=== PATIENT | male | born 1995 | race Caucasian/White ===

== ENCOUNTER → 2020-01-12 13:34 | Outpatient (BNVA) | payer BC, SELFPAY | PROVIDERS: Visit Provider Nurse Practitioner Family | DX: R30.0 Dysuria (principal); Z11.3 Encounter for screening for infections with a predominantly sexual mode of transmission | CPT/HCPCS: 81000; 86592; 87491; 87591; 87806 ==

== ENCOUNTER → 2020-01-23 17:20 | Outpatient (BNVA) | payer BC, SELFPAY | PROVIDERS: Visit Provider Family Medicine | DX: J02.0 Streptococcal pharyngitis (principal) | CPT/HCPCS: 87880 ==

== ENCOUNTER → 2020-06-26 11:00 | Outpatient (BNVA) | payer OTHER, SELFPAY | PROVIDERS: Visit Provider Nurse Practitioner Family | DX: J06.9 Acute upper respiratory infection, unspecified (principal); Z20.828 Contact with and (suspected) exposure to other viral communicable diseases | CPT/HCPCS: 87635 ==

== ENCOUNTER → 2020-12-28 13:27 | Outpatient (BNVA) | payer BC, SELFPAY | PROVIDERS: Visit Provider Psychiatry & Neurology Psychiatry | DX: F41.1 Generalized anxiety disorder (principal); F33.1 Major depressive disorder, recurrent, moderate; F10.21 Alcohol dependence, in remission; F43.12 Post-traumatic stress disorder, chronic | CPT/HCPCS: 99204 ==

== ENCOUNTER → 2021-02-11 09:04 | Outpatient (BNVA) | payer BC, SELFPAY | PROVIDERS: Visit Provider Psychiatry & Neurology Psychiatry | DX: F33.1 Major depressive disorder, recurrent, moderate (principal); F43.12 Post-traumatic stress disorder, chronic; F41.1 Generalized anxiety disorder; F10.21 Alcohol dependence, in remission | CPT/HCPCS: 99213 ==

== ENCOUNTER 2021-07-04 13:42 | Outpatient (CLI) | payer BC, SELFPAY ==
--- NOTE | 2021-07-04 13:46 | XR_ITS ---
WS: [id number] LUMBAR SPINE TECHNIQUE: 3 views of the lumbar spine CLINICAL INFORMATION: M54.5 - Low back pain COMPARISON: None. FINDINGS: Five [id number]-ikjxmbu lumbar vertebral bodies. Grade 1 anterolisthesis L5 on S1 measuring 6 mm. Bilate ral pars defects L5-S1. Mild disc space narrowing L4-L5 and L5-S1. Schmorl's nodes in the lower thora cic and upper lumbar spine. Visualized sacroiliac joints are normal. Normal visualized soft tissues. Partially visualized bowel g as pattern is normal. XR/XR lumbar spine 2-3V* [id number] IMPRESSION: 1. Grade 1 anterolisthesis L5 on S1 measuring 6 mm. Chronic bilateral pars def ects L5-S1. 2. Mild disc space narrowing L4-L5 and L5-S1.
== END 2021-07-04 13:43 | disposition home or self-care (01) ==
PROVIDERS: Visit Provider Nurse Practitioner Family
DX: M54.5 Low back pain (principal)
CPT/HCPCS: 72100

== ENCOUNTER → 2021-07-25 10:56 | Outpatient (BNVA) | payer OTHER, SELFPAY | PROVIDERS: PCP Nurse Practitioner Family; Referring Provider Nurse Practitioner Family; Visit Provider Orthopaedic Surgery | DX: M54.5 Low back pain (principal); M43.17 Spondylolisthesis, lumbosacral region | CPT/HCPCS: 72110 ==

== ENCOUNTER 2021-07-26 09:20 | Outpatient (CLI) | payer OTHER, SELFPAY ==
--- NOTE | 2021-07-26 09:39 | MR_ITS ---
WS: [id number] MRI LUMBAR SPINE NONCONTRAST TECHNIQUE: Sagittal T1, T2 and STIR imaging. Axial T1 and T2 imaging. CLINICAL INFORMATION: M54.5 - Low back pain COMPARISON: None. FINDINGS: Mild lumbar curve. No acute compression. No high-grade central canal stenosis. Disc bulging worse at left L5-S1. Chronic bilateral pars defects L5-S1 with sclerosis. Anterolisthesis L5 on S1 measuring 3 mm L1-L2: Normal. L2-L3: Normal. L3-L4: No significant disc bulging. Mild facet arthropathy. Spinal canal and foramen are patent. L4-L5: Mild annular bulging. Mild to moderate facet arthropathy. Spinal canal and foramen are patent. L5-S1: Left subarticular and foraminal disc protrusion with an annular tear. This impinges the exitin g left L5 nerve root with moderate left foraminal narrowing. Correlation with L5 nerve root symptoms. Right foramen is patent. Moderate facet arthropathy. Slight impingement traversing left S1 nerve ambreen t. Visualized pelvic bony structures: Normal. Paravertebral soft tissues: Normal. MR/MR lumbar spine wo con* [id number] IMPRESSION: 1. Mild lumbar curve. No acute compression. No high-grade central canal stenos is. 2. Left subarticular and proximal foraminal disc protrusion L5-S1 impinges the exiting left L5 nerve root with moderate left foraminal narrowing and small an nular tear. 3. In addition, slight contact traversing left S1 nerve root in the subarticul ar recess L5-S1. 4. Chronic bilateral pars defects L5-S1 with sclerosis. Anterolisthesis L5 on S1 measuring 3 mm. 5. Mild to moderate facet arthropathy L3-L5.
== END 2021-07-26 09:21 | disposition home or self-care (01) ==
LOC: RADSHAW 09:24
PROVIDERS: PCP Nurse Practitioner Family; Visit Provider Nurse Practitioner Family
DX: M47.816 Spondylosis without myelopathy or radiculopathy, lumbar region (principal); M51.27 Other intervertebral disc displacement, lumbosacral region
CPT/HCPCS: 72148

== ENCOUNTER 2022-01-31 22:31 | Emergency (ER) | payer BC, SELFPAY ==
[2022-01-31 22:37] VITALS: BP 164/95; PULSE 87; RESP 18; TEMP 36.8; O2SAT 97; BMI 45.9
--- NOTE | 2022-01-31 22:41 | ED_ITS ---
HPI - Wound/Laceration General: Chief Complaint: Wound/Laceration Stated Complaint: cut finger on left hand Time Seen by Provider: 01/31/22 22:41 History of Present Illness: 26-year-old male patient comes in with injury to the left ring finger. On exam patient has a 2 cm laceration to the palmar aspect of the DIP of the fourth finger on the left hand. Patient has normal tendon function. Patient's tetanus shot is up-to-date. Patient reports injury occurred accidentally when he was cooking tonight. Onset (ago): hour(s) Location: other (Left hand) Extremity Location: Left: hand Place: home Patient tetanus UTD: Yes Context: accidental Associated symptoms: Reports no associated symptoms; Denies fever(s) Review of Systems General: Reports: 10 or more systems reviewed and unremarkable except in HPI and below Const: Denies: fever(s) Card: Denies: chest pain Resp: Denies: dyspnea Musc: Reports: extremity pain Skin/Breast: Reports: new lesions Psych: Denies: depression Vijay/Lymph: Denies: easy bruising or easy bleeding PFS ED PFSH: Medical History (Updated 01/31/22 @ 23:07 by SHOSHANA Frances) ADHD Attention and concentration deficit No pertinent past medical history Psychiatric care Surgical History No pertinent past surgical history Social History Smoking and tobacco status: never smoked Second hand smoke exposure: Yes Alcohol intake: current Alcohol intake frequency: few times a month Lives independently: Yes Marital status: service: No Current occupational status: employed Current occupation: [employer] History of recent travel: No Current gender identity: Male Physical Exam Const: COMMON NORMALS: alert HENMT: COMMON NORMALS: atraumatic HEAD & SCALP: atraumatic Neck/C-Spine: COMMON NORMALS: full ROM Resp: COMMON NORMALS: normal respiratory effort Cardio: COMMON NORMALS: regular rate RATE: regular rate Extremity: LEFT UPPER EXTREMITY: Yes hand & digits (2 cm laceration to the fourth digit, normal tendon function) Left hand and digits: Yes inspection, Yes palpation, Yes ROM, Yes neurovascular exam and Yes tendon exam Neuro: SENSORIUM/ORIENTATION: Yes alert Psych: COMMON NORMALS: cooperative Procedures Laceration Laceration 1: Site: hand Side (If applicable): left Size (cm): 2 Description: linear Depth: simple, single layer Local Anesthetic: lidocaine 1% and with epi Amount of anesthesia used (mL): 2 Pre-repair: wound explored and irrigated extensively Skin layer closed with: nylon Size (cm): 4-0 Number of sutures: 4 Technique: horizontal mattress Course Vital Signs: Vital signs: Vital Signs Temperature 98.3 F 01/31/22 22:37 Pulse Rate 87 01/31/22 22:37 Respiratory Rate 18 01/31/22 22:37 Blood Pressure 164/95 01/31/22 22:37 Pulse Oximetry 97 01/31/22 22:37 MDM - Wound/Laceration Medical Decision Making Patient comes in for injury to the left ring finger. On exam there is a 2 cm laceration at the palmar side of the DIP joint. Patient has good tendon function. Patient does report some numbness distal week. Prompt capillary refill. Differential diagnosis includes but not limited to foreign body, laceration, neurovascular injury. Patient possibly might have some neurovascular injury reviewed this with patient recommended follow-up as needed. Wound was closed with sutures. Patient tolerated well. Discharge Plan Discharge Patient Disposition: Home Clinical Impression: Finger laceration Condition: Stable Prescriptions: No Action diclofenac potassium [Cataflam] 50 mg tablet 50 mg PO DAILY 0RF Label Comments: pt states not taking this med cyclobenzaprine 10 mg tablet 10 mg PO TID 0RF Label Comments: Pt states not taking this medication atomoxetine 40 mg capsule 40 mg PO QAM 30 Days Qty: 30 3RF dextroamphetamine-amphetamine 10 mg tablet 10 mg PO BID 30 Days Qty: 60 0RF celecoxib [Celebrex] 200 mg capsule 200 mg PO BID Qty: 60 1RF Discharge Orders: Discharge ED (Routine); Ordered 01/31/22 Ordered By: Preston Calhoun Referrals: Divine Solorzano FNP [Primary Care Provider] - Discharge Diet: Usual diet Discharge Activity: Limit activity as instructed Patient Instructions: Laceration (ED) Activity Restrictions/Additional Instructions: Keep wound clean and dry. You can leave the initial dressing on as long as it stays clean and dry. Change if it becomes soiled or wet. Sutures need to come out in 7 to 10 days. Monitor for fever, increasing redness or swelling, or signs of infection. Follow-up with primary care in 1 week. Return to ER as needed. Coding Level of Care Code ED User Experience Developer for Tito Bean
[2022-01-31 23:18] VITALS: RESP 16
== END 2022-01-31 23:20 | disposition home or self-care (01) ==
PROVIDERS: Emergency Provider Nurse Practitioner Family; PCP Nurse Practitioner Family
DX: S61.215A Laceration without foreign body of left ring finger without damage to nail, initial encounter (principal); W45.8XXA Other foreign body or object entering through skin, initial encounter; Y93.G3 Activity, cooking and baking; Y92.000 Kitchen of unspecified non-institutional (private) residence as the place of occurrence of the external cause
CPT/HCPCS: 12001; 99283

== ENCOUNTER → 2022-06-03 16:07 | Outpatient (BNVA) | payer BC, SELFPAY | PROVIDERS: PCP Nurse Practitioner Family; Visit Provider Nurse Practitioner Family | DX: J02.9 Acute pharyngitis, unspecified (principal) | CPT/HCPCS: 87071; 87880 ==

== ENCOUNTER → 2022-06-25 13:10 | Outpatient (BNVA) | payer BC, SELFPAY | PROVIDERS: PCP Nurse Practitioner Family; Visit Provider Nurse Practitioner Family | DX: F90.9 Attention-deficit hyperactivity disorder, unspecified type (principal); F41.1 Generalized anxiety disorder; E66.9 Obesity, unspecified; R51.9 Headache, unspecified; R00.2 Palpitations; R11.0 Nausea; K21.9 Gastro-esophageal reflux disease without esophagitis; R10.9 Unspecified abdominal pain | CPT/HCPCS: 80053; 80061; 84443 ==

== ENCOUNTER 2022-06-26 11:21 | Outpatient (CLI) | payer BC, SELFPAY ==
--- NOTE | 2022-06-26 11:29 | XR_ITS ---
WS: [id number] KUB, AP view, 06/26/2022 Clinical Data: epigastric abdominal pain Comparison: None. Findings: No abnormal intraabdominal masses or calcifications are seen. There is no dilatated small bowel or ev idence of obstruction. There is fecal material in the ascending colon. XR/XR KUB [id number] Impression: Negative KUB.
== END 2022-06-26 11:22 | disposition home or self-care (01) ==
PROVIDERS: PCP Nurse Practitioner Family; Visit Provider Nurse Practitioner Family
DX: R10.9 Unspecified abdominal pain (principal)
CPT/HCPCS: 74018

== ENCOUNTER → 2024-01-18 10:30 | Outpatient (BNVA) | payer BC, SELFPAY | PROVIDERS: PCP Nurse Practitioner Family; Visit Provider Nurse Practitioner Family | DX: R53.83 Other fatigue (principal) | CPT/HCPCS: 80053; 80061; 82306; 82607; 84403; 84443; 85025 ==

== ENCOUNTER → 2024-03-16 14:20 | Outpatient (BNVA) | payer BC, SELFPAY | PROVIDERS: PCP Nurse Practitioner Family; Visit Provider Nurse Practitioner Family | DX: R79.89 Other specified abnormal findings of blood chemistry (principal); R73.9 Hyperglycemia, unspecified; E55.9 Vitamin D deficiency, unspecified; Z71.3 Dietary counseling and surveillance; B35.3 Tinea pedis | CPT/HCPCS: 80053; 82306; 83036; 84403; 85025 ==

== ENCOUNTER 2024-03-24 13:10 | Outpatient (CLI) | payer BC, SELFPAY ==
[2024-03-24 13:14] LABS: Sperm Present Sperm Not Present
== END 2024-03-24 13:11 | disposition home or self-care (01) ==
LOC: LAB 13:11
PROVIDERS: PCP Nurse Practitioner Family; Visit Provider Urology
DX: Z30.8 Encounter for other contraceptive management (principal)
CPT/HCPCS: 80503

== ENCOUNTER 2024-04-01 09:36 | Outpatient (CLI) | payer BC, SELFPAY ==
[2024-04-01 10:22] LABS: Alanine Aminotransferase 23 U/L (0-41); Alkaline Phosphatase 84 U/L (40-130); Aspartate Amino Transferase 21 U/L (0-40); Estradiol 49.7 pg/mL (7.63-42.6); Globulin 3.1 g/dL (1.3-4.6); Prolactin 9.42 ng/mL (4.0-15.2); Total Bilirubin 0.4 mg/dL (0.15-1.2); Total Protein 7.1 g/dL (6.6-8.7)
[2024-04-04 12:30] LABS: Albumin 4.1 g/dL (3.6-5.1); Sex Hormone Binding Globulin 14.9 nmol/L (10-50); Testosterone, Bioavailable 96.9 ng/dL (110.0-575.0); Testosterone, Free 51.5 pg/mL (46.0-224.0); Testosterone, Total , MS 227 ng/dL (250-1100)
== END 2024-04-01 09:37 | disposition home or self-care (01) ==
LOC: LAB 09:40
PROVIDERS: PCP Nurse Practitioner Family; Visit Provider Nurse Practitioner Family
DX: E29.1 Testicular hypofunction (principal)
CPT/HCPCS: 36415; 80076; 82040; 82670; 83002; 84146; 84270; 84403

== ENCOUNTER 2024-06-06 12:18 | Outpatient (CLI) | payer BC, SELFPAY ==
[2024-06-06 13:34] LABS: Alanine Aminotransferase 25 U/L (0-41); Albumin Level 4.2 g/dL (3.5-5.2); Alkaline Phosphatase 87 U/L (40-130); Aspartate Amino Transferase 18 U/L (0-40); Estradiol 78.7 pg/mL (7.63-42.6); Globulin 3.2 g/dL (1.3-4.6); Luteinizing Hormone 0.1 mIU/mL (1.7-8.6); Prolactin 12.38 ng/mL (4.0-15.2); Total Bilirubin 0.4 mg/dL (0.15-1.2); Total Protein 7.4 g/dL (6.6-8.7)
[2024-06-09 11:09] LABS: Albumin 4.3 g/dL (3.6-5.1); Sex Hormone Binding Globulin 16.8 nmol/L (10-50); Testosterone, Bioavailable 229.3 ng/dL (110.0-575.0); Testosterone, Free 116.4 pg/mL (46.0-224.0); Testosterone, Total , MS 508 ng/dL (250-1100)
== END 2024-06-06 12:19 | disposition home or self-care (01) ==
LOC: LAB 12:21
PROVIDERS: PCP Nurse Practitioner Family; Visit Provider Nurse Practitioner Family
DX: E29.1 Testicular hypofunction (principal)
CPT/HCPCS: 36415; 80076; 82040; 82670; 83002; 84146; 84270; 84403

== ENCOUNTER 2024-06-13 12:21 | Outpatient (CLI) | payer BC, SELFPAY ==
[2024-06-13 12:58] LABS: Hematocrit 47.1 % (37-53)
== END 2024-06-13 12:22 | disposition home or self-care (01) ==
LOC: LAB 12:24
PROVIDERS: PCP Nurse Practitioner Family; Visit Provider Nurse Practitioner Family
DX: E29.1 Testicular hypofunction (principal)
CPT/HCPCS: 36415; 85014

== ENCOUNTER 2025-09-26 08:57 | Emergency (ER) | payer BC, SELFPAY ==
[2025-09-26 09:02] VITALS: BP 167/96; PULSE 88; RESP 16; TEMP 36.8; O2SAT 99
--- NOTE | 2025-09-26 09:13 | ED_ITS ---
HPI - General Adult General: Chief complaint: General Medical Stated complaint: ferris ekwok sent, stroke like symptoms Time Seen by Provider: 09/26/25 09:10 History of Present Illness: 29-year-old male with a history of ADHD and obesity who presents to the emergency room with left-sided facial weakness. That he had some pain in his neck and throat and lost taste in his left tongue. His entire left face including his eyebrow eyelid cheek are all week. No altered mental status. No other focal motor deficits. No slurred speech. Related Data Previous Rx's ?Medication ?Instructions ?Recorded phentermine 37.5 mg tablet 37.5 mg PO DAILY #30 tabs 0 03/16/24 terbinafine HCl 250 mg tablet 250 mg PO DAILY #30 tabs 03/16/24 ergocalciferol (vitamin D2) 1,250 1,250 mcg PO .weekly #12 caps 03/18/24 mcg (50,000 unit) capsule cephalexin 500 mg capsule 500 mg PO BID 10 days #20 ca ps 09/26/25 prednisone 20 mg tablet 60 mg (3 x 20 mg) PO DAILY # 20 tabs 09/26/25 valacyclovir 1 gram tablet 1,000 mg PO Q12H 10 days #2 0 tabs 09/26/25 Allergies Allergy/AdvReac Type Severity Reaction Status Date / Time gabapentin AdvReac Intermediate severe Verified 09/26/25 09:08 nightmares Review of Systems Narrative: Constitutional symptoms: Negative except as documented in HPI. Skin symptoms: Negative except as documented in HPI. Eye symptoms: Negative except as documented in HPI. ENMT symptoms: Negative except as documented in HPI. Respiratory symptoms: Negative except as documented in HPI. Cardiovascular symptoms: Negative except as documented in HPI. Gastrointestinal symptoms: Negative except as documented in HPI. Genitourinary symptoms: Negative except as documented in HPI. Musculoskeletal symptoms: Negative except as documented in HPI. Neurologic symptoms: Negative except as documented in HPI. Psychiatric symptoms: Negative except as documented in HPI. Endocrine symptoms: Negative except as documented in HPI. [facility] ED PFSH: Medical History (Updated 09/26/25 @ 09:14 by Karen Zaldivar MD) ADHD Attention and concentration deficit No pertinent past medical history Surgical History No pertinent past surgical history Social History Smoking and tobacco/nicotine status: never used tobacco/nicotine Second hand smoke exposure: Yes Alcohol intake: current Alcohol intake frequency: few times a month Lives independently: Yes Marital status: service: No Current occupational status: employed Current occupation: [employer] Current gender identity: Male Physical Exam Narrative: EXAM NARRATIVE: General: Alert, no acute distress. Skin: Warm, dry. Head: Normocephalic, atraumatic. Neck: Supple, trachea midline. Eye: Extraocular movements are intact. Ears, nose, mouth and throat: mucosa moist. Cardiovascular: Regular, Normal peripheral perfusion. Respiratory: Lungs are clear to auscultation, respirations are non-labored, breath sounds are equal, Symmetrical chest wall expansion. Gastrointestinal: Soft, Nontender, Non distended Musculoskeletal: Normal ROM, no deformity. Neurological: Alert and oriented, left-sided facial weakness including smile, eyelid, eyebrow and forehead. No other focal motor deficits. No slurred speech. Psychiatric: Cooperative, appropriate mood & affect. Course Vital Signs: Vital signs: Vital Signs Temperature 98.3 F 09/26/25 09:02 Pulse Rate 88 09/26/25 09:02 Respiratory Rate 16 09/26/25 09:02 Blood Pressure 167/96 09/26/25 09:02 Pulse Oximetry 99 09/26/25 09:02 Oxygen Delivery Me thod Room Air 09/26/25 09:02 MDM - General Adult Medical Decision Making Medical decision making Patient's reason for coming to the emergency room: Social determinants: I reviewed the patient's medical record. Patient has a history of ADHD. I reviewed the patient's current home meds Currently no chronic medication Alternate historians: None Differential diagnosis for patient with complaint of facial droop: bells palsy vs stroke. including but not limited to and based on the above HPI, review of systems and physical exam: involves forehead and eyelid, so almost certainly not a stroke. In this young person with definitive Wills's palsy some symptoms I considered a CT but this does not need to be done. Assessment and plan: Wills's palsy - Discharged home - Discussed plan with patient. Answered any questions. - Evaluation and treatment of this problem were appropriate in the emergency setting. No radiology studies performed this visit Discharge Plan Discharge Patient Disposition: Home Clinical Impression: Wills's palsy Condition: Stable Prescriptions: New valacyclovir 1 gram tablet 1,000 mg PO Q12H 10 Days Qty: 20 0RF prednisone 20 mg tablet 60 mg PO DAILY Qty: 20 0RF Rx Instructions: 3 tabs (60 mg) x 3 days. 2 tabs (40 mg) x 3 days. 1 tab (20 mg) x 3 days. 1/2 tab (10 mg) x 4 days cephalexin 500 mg capsule 500 mg PO BID 10 Days Qty: 20 0RF No Action phentermine 37.5 mg tablet 37.5 mg PO DAILY Qty: 30 0RF Rx Instructions: must administer 30 minutes before or 1-2 hours after breakfast terbinafine HCl 250 mg tablet 250 mg PO DAILY Qty: 30 1RF ergocalciferol (vitamin D2) 1,250 mcg (50,000 unit) capsule 1,250 mcg PO .weekly Qty: 12 1RF Discharge Orders: Discharge ED (Routine); Ordered 09/26/25 Ordered By: Karen Zaldivar Referrals: Divine Solorzano FNP [Primary Care Provider, Family Practice] Discharge Diet: Usual diet Discharge Activity: Increase activity as tolerated Patient Instructions: Wills Palsy (ED), Opioid Safety, Pain Management, Patient Portal & Miugel Instructions Activity Restrictions/Additional Instructions: Thank you for choosing [facility] for your healthcare needs today. You have been screened and evaluated and felt safe for discharge. Health conditions do change or evolve sometimes and as such it is important that you follow up with your Primary Doctor to be re checked, 3-5 days is a general good time frame for follow up. You are always welcome to return to the ED for re assessment if your symptoms are worsening or you have new concerns Stand Alone Forms: Work/School Release Print Language: Barbadian Coding Level of Care Code ED Crusher Feeder for Tito Bean
--- OUTSIDE RECORDS SUMMARY | 2025-09-26 09:13 | XMS_ITS | Continuity of Care Document ---
Author Organization RENET[facility] - Catrachita Zuleta, [facility] ([facility]) Address [address] [place] [address] Assessment No assessment recorded. Plan of Treatment Reminders Order Date Submit Date Provider Last Modified By Organization Details Last Modified Time Details Appointments ACUTE VISIT 2024 08:00A M WALK-IN Not available Not available Not available Lab streptoco ccus group A Ag screen 2024 025 [email or web address] [facility] ([facility]), [address] [place], [address], 08/29/2025 12:54:52 Referral None recorded. Procedures None recorded. Surgeries None recorded. Imaging None recorded. Medication Orders amoxicill in 875 mg-potass ium clavulana te 125 mg tablet 2024 025 [facility] [place], [address] [place], [address], 09/15/2025 05:01:37 Patient TargetsNo targets recorded. Patient Instructions Encounter Date Encounter Id Patient Instructions Last Modified By Organization Details Last Modified Time 08/29/2025 [id number] - Take prescribe d amoxicillin as directed. - Monitor for any side effects or allergic reactions. - Rest and stay hydrated to aid recovery. - Follow up if symptoms persist or worsen after a few days. - Report any new symptoms such as fever or persistent ear pain. [email or web address] Not available 08/29/2025 12:01:11 [email or web address] Not available 2024 16:42:35 Reason for Referral None Reported. Results Created Date Observation Date Name Description Value Unit Range Abnormal Flag Note LastModifiedBy Organization Detail LastModifiedTime 08/29/20 25 08/29/2025 strep tococ cus group A Ag scree n Strep negati ve Not Available [facility] ([facility]) [address] [place], [address], 08/29/2025 11:03:05 Result Notes None recorded. Problems Name Problem SNOMED Code Status Onset Date Resolution Date Notes Provider Name and Address Organization Details Recorded Time Acute maxillary sinusitis [id number] Active Odalis Brumfield, [address] [place], [address] , [facility], [facility] 11:20:01 Problem Notes None recorded. Medical Equipment None Reported. Allergies No known drug allergies Medications Name Sig Start Date Stop Date Status Note LastModified by Organization Details LastModified Time hydrocodo ne 5 mg-acetam inophen 325 mg tablet TAKE 1 TABLET BY MOUTH EVERY 6 HOURS NEEDED FOR PAIN 09/12 completed Not Available Not Available Not Available prednison e 20 mg tablet TAKE 2 TABLETS BY MOUTH DAILY FOR 10 DAYS 05/30 completed Not Available Not Available Not Available phentermi ne 37.5 mg tablet TAKE 1 TABLET BY MOUTH EVERY DAY. MUST TAKE 30 MINUTES BEFORE OR 1-2 HOURS AFTER BREAKFAS T 09/12 completed Not Available Not Available Not Available terbinafi ne HCl 250 mg tablet TAKE 1 TABLET BY MOUTH EVERY DAY 09/12 completed Not Available Not Available Not Available amoxicill in 875 mg tablet two times daily 09/12 completed Recorded 01/06/20 23 7:51AM by SHOSHANA Castillo, Office Visit; Refill Quantity : 0; Not Available Not Available Not Available diazepam 10 mg tablet TAKE ONE TABLET NEEDED when arriving TO facility FOR procedur e 09/12 completed Not Available Not Available Not Available Vitamin D2 1,250 mcg (50,000 unit) capsule take 1 capsule BY MOUTH every week 09/12 completed Not Available Not Available Not Available ketoconaz ole 2 % topical cream apply topicall y TWICE DAILY FOR 14 DAYS 09/12 completed Not Available Not Available Not Available amoxicill in 875 mg-potass ium clavulana te 125 mg tablet Take 1 tablet twice a day by oral route for 10 days. 09/15 completed Not Available Not Available Not Available ciproflox acin 0.3 %-dexamet hasone 0.1 % ear drops,eder pension INSTILL FOUR DROPS into affected ear(S) TWICE DAILY for 7 days 08/29 completed Not Available Not Available Not Available Vitals Date Recorded Body height Body mass index (BMI) Body weight Body temperature Oxygen saturation Heart rate Systolic And Diastolic Provider Name and Address Organization Details Last Updated DateTime 177.8 cm 51.9 kg/m2 750617. 44 g 98.1 [degF] 96 % 71 /min 115/80 mm[Hg] ANNETTA STATON [facility] 11:29:40 Social History Question Answer Notes LastModified by Organizat ion Details LastModified Time Tobacco Smoking Status Never Smoker NASIR milton [facility] 05/30/2025 09:12:02 What Was The Date Of Your Most Recent Tobacco Screening? 09/26/2025 [email or web address] Information not available 09/26/2025 Sex: Unknown Functional Status None recorded. Mental Status None recorded. Family History Nothing Reported. Medical History No medical history recorded. Immunizations Vaccine Type Date Status Note Provider Nam e and Address Organization Details Recorded Time varicella 01/13/2025 completed Not Available [facility] 09/26/2025 09:12:18 Tdap 01/13/2025 completed Not Available [facility] 09/26/2025 09:12:18 Past Encounters Encounter ID Performer Location Encounter Start Date Encounter Closed Date Diagnosis/Indication Diagnosis SNOMED-CT Code Diagnosis ICD10 Code Diagnosis IMO Codes Diagnosis Note [id number] Jessica Coles MD [facility] ([facility]) [address] [place] [address] 08/29/2025 10:56:12 08/30/2025 17:05:46 Sore throat 676830771 J02.9 68926 Strep negative Acute righ t otitis media [id number] H66.91 [id number] - Start amoxicilli n; monitor for symptom resolution . - Follow up if symptoms worsen. Health Concerns Section Related Observation LastModified by Organization Detai ls LastModified Time None Recorded Concern Status LastModified by Organization Details LastModified Time None Recorded Payers Encounter Date Sequence Insurance Name Policy Number Policy Vitale Covered Member ID [employer] Member ID Guarantor Name 08/29/2025 1 [employer] [id number] Bulmaro Mccullough [id number] Bulmaro Mccullough Notes Date Note Type Note Provider Name and Address Organization Details Recorded Time 08/29/2025 text/html Sore ThroatRepor sánchez by PatientHPIFor quality, patient reportsdifficulty swallowingandlaryngiti s. For severity, patient reportsworsening. For associated symptoms, patient reportscough,headache, stiff neck, andmuffled voice.ROS as noted in the HPI body aches.no pain or pressure. The patient is a 29 year old male presenting with a sore throat and ear concerns. He reports the onset of symptoms started today, including a sore throat with swollen tonsils and history of such episodes several times a year, with close monitoring for strep infections. The patient does not report fever but mentions commencing body aches. He describes increased drainage into his throat and ears, a common precursor for him before developing strep throat, with a similar episode of right ear otitis media previously treated with amoxicillin in May. Jessica Coles MD [address] [place] [address], [phone], [facility] [place] [facility] 08/30/2025 16:42:46
--- OUTSIDE RECORDS SUMMARY | 2025-09-26 09:13 | XMS_ITS | Data Portability ---
Author Organization RENETTA Sharma [facility] Address [address] [facility] [address] [place] [address] Assessment No assessment recorded. Plan of Treatment Reminders Order Date Submit Date Provider Last Modified By Organization Details Last Modified Time Details Appointments ACUTE VISIT 2024 08:00A M WALK-IN Not available Not available Not available Lab streptoco ccus group A Ag screen 2024 [email or web address] [facility] ([facility]), [address] [place], [phone], 08/29/2025 12:54:52 Referral None recorded. Procedures None recorded. Surgeries None recorded. Imaging None recorded. Medication Orders amoxicill in 875 mg-potass ium clavulana te 125 mg tablet [address], [address], 09/15/2025 05:01:37 ciproflox acin 0.3 %-dexamet hasone 0.1 % ear drops,eder pension [address], [address], 08/29/2025 11:49:44 amoxicill in 875 mg-potass ium clavulana te 125 mg tablet [address], [address], 09/15/2025 05:01:37 amoxicill in 875 mg-potass ium clavulana te 125 mg tablet 2023 025 [facility] [place], [address], 09/15/2025 05:01:37 prednison e 20 mg tablet 2023 025 [facility] [place], [address], 05/30/2025 10:13:37 Patient TargetsNo targets recorded. Patient Instructions Encounter Date Encounter Id Patient Instructions Last Modified By Organization Details Last Modified Time 08/29/2025 [id number] - Take prescribe d amoxicillin as directed. [...] Abnormal Flag Note LastModifiedBy Organization Detail LastModifiedTime 08/29/2008/29/2025 strep tococ cus group A Ag scree n Strep negati ve Not Available [facility] ([facility]) [address] [place] [address], [phone], 08/29/2025 11:03:05 Result Notes None recorded. Problems Name Problem SNOMED Code Status Onset Date Resolution Date Notes Provider Name and Address Organization Details Recorded Time Acute maxillary sinusitis 00100440 Active 024 Alex Brumfield DO [address] [place] [address], [phone] , [facility], [place] 11:20:01 Problem Notes None recorded. Medical Equipment [...] height Body mass index (BMI) Body weight Oxygen saturation Heart rate Body temperature Respiratory rate Systolic And Diastolic Provider Name and Address Organization Details Last Updated DateTime 177.8 cm 49.7 kg/m2 038523. 66 g 97 % 72 /min 98.3 [degF] 17 /min 140/90 mm[Hg] NASIR JACKSON [facility]ice 5 09:11:32 Date Recorded Body height Body mass index (BMI) Body weight Body temperature Oxygen saturation Heart rate Systolic And Diastolic Provider Name and Address Organization Details Last Updated DateTime 5 177.8 cm 51.9 kg/m2 971216. 44 g 98.1 [degF] 96 % 71 /min 115/80 mm[Hg] ANNETTA STATON [facility] L.LAliceC. 5 11:29:40 Date Recorded Body height Body mass index (BMI) Body weight Oxygen saturation Heart rate Body temperature Systolic And Diastolic Provider Name and Address Organization Details Last Updated DateTime 4 177.8 cm 45.5 kg/m2 874942. 78 g 98 % 74 /min 98.5 [degF] 134/86 mm[Hg] Arcadio Roberts [facility] 4 10:26:01 Date Recorded Body height Body mass index (BMI) Body weight Oxygen saturation Heart rate Body temperature Systolic And Diastolic Provider Name and Address Organization Details Last Updated DateTime 5 177.8 cm 52.1 kg/m2 539224. 03 g 96 % 82 /min 98.3 [degF] 142/88 mm[Hg] Amarilys Perez [facility] 5 09:17:16 Social History Question Answer Notes LastModified by Organizat ion Details LastModified Time Tobacco Smoking Status Never Smoker NASIR milton [facility] 05/30/2025 09:12:02 What Was The Date [...] ICD10 Code Diagnosis IMO Codes Diagnosis Note [id number] Alex Brumfield DO [facility] ([facility]) [address] [place] [id number] 09/12/2024 10:07:09 09/12/2024 11:21:59 Acute maxillary sinusitis 15387796 J01.00 acute, progressin g appears started as allergic, now bacterial. will start steroids and abx, rest, nsaids, antihistam chandana OTC. [id number] SHOSHANA GALICIA [facility] ([facility]) [address] [place] [phone] 05/30/2025 09:05:25 05/30/2025 09:38:04 Acute infective otitis externa 726862279 H60.391 [id number] May use otc meds as needed for any pain or fever. Return to clinic with any new or worsening symptoms. [id number] Jessica Coles MD [facility] ([facility]) [address] [place] [phone] 08/29/2025 10:56:12 08/30/2025 17:05:46 Sore throat 691911511 J02.9 30578 Strep negative Acute righ t otitis media 939359342 H66.91 [id number] - Start amoxicilli n; monitor for symptom resolution . - Follow up if symptoms worsen. Health Concerns Section Related Observation LastModified by Organization Detai ls LastModified Time None Recorded Concern Status LastModified by Organization Details LastModified Time None Recorded Advance Directives Directive None Recorded Payers Insurance Date Sequence Insurance Name Policy Number Policy Vitale Covered Member ID Vitale Member ID Guarantor Name 09/26/2025 1 [employer] [id number] Bulmaro Mccullough [id number] Blumaro Mccullough Notes Date Note Type Note Provider Name and Address Organization Details Recorded Time 4 text/html Upper Respiratory SymptomsReported by PatientUpper Respiratory SymptomsFor quality, patient reportsproductive cough,congested, andnasal discharge. For context, patient reportssick contact. For associated symptoms, patient reportschest pain,rust colored sputum,headache, andmalaise. For location, patient reportshead,chest,nasa l,ears, andface. For severity, patient reportspain level 4/10.says that his eyes are watering bad as well.ROS as noted in the HPI walk in: Says that he is congested and that his eyes are super swollen. Says that it feels like allergies except it three to four times worse. Says that he also thinks that he has a sinus infection because he has been coughing up brown stuff. Says that he has not ran a fever. Not a smoker. PT denies any fevers, chills. GARIBAY or Body aches. PCP: Marilin Brumfield, DO [address] [place], [address], [facility], Aj. 09/12/2024 11:21:10 5 text/html ROS as noted in the HPI walk-in; PCP Divine Solorzano Patient c/o right ear pain. Started yesterday but got worse last night. Taking Tylenol but not helping the pain much. Ear is draining. Patient states that he feels water sloshing around in his ear drum . Patient states that the pain is better after the ear began to drain. SHOSHANA GALICIA [address] [place], [address], [facility] L[facility]LAliceC. 05/30/2025 09:28:51 5 text/html Sore ThroatReported by PatientHPIFor quality, patient reportsdifficulty swallowingandlaryngiti s. [...] with amoxicillin in May. Jessica Coles MD [address] [place] [address], [phone], [facility] [place] 08/30/2025 16:42:46 5 text/html Walk inBell's palsy symptoms. facial weakness, facial numbness, stabbing pain behind left ear x3 days. Getting progressively worse. Not Available Not Available Not Available
[2025-09-26 09:17] VITALS: BP 157/95; PULSE 84; O2SAT 95
== END 2025-09-26 09:23 | disposition home or self-care (01) ==
PROVIDERS: Emergency Provider Emergency Medicine; PCP Nurse Practitioner Family
DX: G51.0 Bell's palsy (principal)
CPT/HCPCS: 99283